=== PATIENT | male | born 1980 | race Caucasian/White ===

== ENCOUNTER 2024-09-27 10:26 | Emergency (ER) | payer OTHER ==
[~2024-09-27] VITALS: Ht 190.5 cm; Wt 122.5 kg
[2024-09-27] MEDS: ASPIRIN 325MG TAB PO ONE (10:55)
[2024-09-27] MEDS ORDERED: NITROGLYCERIN 0.4 MG SL TAB SL PRN (11:00)
[2024-09-27 11:08] LABS: BASOPHILS # (AUTO) 0.01 K/uL (0.00-0.20); BASOPHILS % (AUTO) 0.2 % (0.0-5.0); CREATININE 0.9 mg/dL (0.5-1.3); EOSINOPHILS # (AUTO) 0.04 K/uL (0.00-0.70); EOSINOPHILS % (AUTO) 0.9 % (0.0-8.0); HEMATOCRIT 44.1 % (42-54); IMMATURE GRANULOCYTE ABSOLUTE 0.05 K/uL (0-1); LYMPHOCYTES % (AUTO) 22.7 % (21.0-51.0); MEAN CORPUSCULAR HEMOGLOBIN 31.7 pg (27.0-33.0); MEAN CORPUSCULAR HGB CONC 36.1 g/dL (32.0-36.0); MEAN CORPUSCULAR VOLUME 87.8 fL (79-99); MONOCYTES # (AUTO) 0.3 K/uL (0.1-1.0); MONOCYTES % (AUTO) 7.1 % (3.0-13.0); NEUTROPHILS # (AUTO) 2.9 K/uL (1.8-7.7); NEUTROPHILS % (AUTO) 67.9 % (40.0-77.0); PLATELET COUNT (AUTO) 127 K/uL (130-400); POTASSIUM 3.9 mmol/L (3.5-5.1); RED BLOOD CELL COUNT(AUTO) 5.02 MIL/uL (4.50-6.20); RED CELL DISTRIBUTION WIDTH 12.3 % (11.0-15.5); WHITE BLOOD COUNT (AUTO) 4.2 K/uL (4.8-10.8)
[2024-09-27 11:28] LABS: APPEARANCE,URINE CLEAR (CLEAR); BILIRUBIN,URINE NEGATIVE (NEGATIVE); COLOR,URINE LIGHT-YELLOW (YELLOW); GLUCOSE, URINE (UA) 50 mg/dL (NEGATIVE); KETONES,URINE NEGATIVE (NEGATIVE); LEUKOCYTE ESTERASE ,URINE NEGATIVE Leu/uL (NEGATIVE); NITRATE,URINE NEGATIVE (NEGATIVE); OCCULT BLOOD,URINE NEGATIVE (NEGATIVE); PROTEIN,URINE NEGATIVE (NEGATIVE); UROBILINOGEN,URINE 0.2 mg/dL (0.2-1.0)
[2024-09-27 11:30] LABS: ADD UA MICROSCOPIC YES; BACTERIA,URINE None Seen /HPF (None Seen); RBC,URINE 0-1 /HPF (0-1); WBC,URINE None Seen /HPF (0-1)
[2024-09-27 11:31] LABS: B-TYPE NATRIURETIC PEPTIDE 11 pg/mL (0-100)
--- NOTE | 2024-09-27 11:32 | HMCIMG ---
Exam Type: CHEST 1VW Clinical Information: cp Comparison: None Findings: The lungs are clear of infiltrates. The heart is normal in size. The bony and soft tissue structures of the chest are unremarkable. Impression: Clear lungs.
[2024-09-27 11:35] LABS: AMPHET/METH SCREEN,URINE NEGATIVE (NEGATIVE); BARBITURATE SCREEN, URINE NEGATIVE (NEGATIVE); BENZODIAZEPINES SCREEN,URINE NEGATIVE (NEGATIVE); CANNABINOID SCREEN,URINE NEGATIVE (NEGATIVE); COCAINE SCREEN,URINE NEGATIVE (NEGATIVE); OPIATE SCREEN,URINE NEGATIVE (NEGATIVE); PHENCYCLIDINE SCREEN,URINE NEGATIVE (NEGATIVE)
--- NOTE | 2024-09-27 11:56 | ERN ---
ED Note History of Present Illness Stated Complaint: CHEST PAIN Chief Complaint: Chest Pain Time Seen by MD: 10:32 Time Seen by Midlevel: 10:36 Dictation: 44-year-old male with a history of hypertension and cholesterol coming in with complaints of chest pain, tightness, shortness a breath, then he says he had an episode where he felt numbness to his feet and hands. 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 Allergies: Coded Allergies: No Known Drug Allergies (Unverified Allergy, Unknown, 09/27/24) Past Medical History Past Medical History: High Cholesterol, Hypertension Surgical History: Appendectomy, Other Surgical History Other: HERNIA REPAIR Review of System Dictation Constitutional: Negative for fever,chills, and weight loss Eyes: Negative for injury, pain,redness, and discharge ENT: Negative for injury,pain or swelling Cardiovascular: Positive for chest pain, no palpitations, and no edema Respiratory: Negative for shortness of breath, cough, and wheezing, Abdomen/GI: Negative for abdominal pain, nausea, vomiting, diarrhea, and constipation Back: Negative for injury and pain : Negative for injury, bleeding and discharge MS/Extremity: Negative for injury and deformity Skin: Negative for rash, and discoloration Neuro: Negative for headache, weakness, numbness, tingling, and seizure Psych: Negative for suicide ideation, homicidal ideation, and hallucinations Review of Systems: was completed Initial Vital Sign VS Vital Signs Date Time Temp Pulse Resp B/P (MAP) Pulse Ox O2 Delivery O2 Flow Rate FiO2 09/27/24 10:30 98.4 76 20 156/78 99 Room Air 09/27/24 11:42 0 21 Physical Exam Dictation General: awake, alert, NAD Head/Face: Normocephalic, atraumatic Eyes: PERRL, EOMI, vision at baseline ENT: oral cavity clear, TMs clear, no signs of infection Neck: Trachea midline, supple, no nuchal rigidity Cardiovascular: RRR, normal S1/S2, No MRGs, no JVD Respiratory: CTAB, no respiratory distress, No rales or wheezes Abdomen: Soft, non-tender, non-distended, normal bowel sounds, no guarding or rebound. Skin: Warm, dry, normal turgor, no rash MS/Extremity: Pulses equal, no cyanosis, neurovascular intact, FROM Neuro: COAx4, GCS 15, strength 5/5, CN 2-12 intact, normal cerebellar exam, normal gait, Psych: Normal behavior, mood, and affect normal Results (Laboratory/Radiology) Laboratory/Radiology Laboratory Tests Test 09/27/24 10:53 09/27/24 10:55 09/27/24 12:29 White Blood Count 4.2 K/uL (4.8-10.8) L Red Blood Count 5.02 MIL/uL (4.50-6.20) Hemoglobin 15.9 g/dL (14.0-18.0) Hematocrit 44.1 % (42-54) Mean Corpuscular Volume 87.8 fL (79-99) Mean Corpuscular Hemoglobin 31.7 pg (27.0-33.0) Mean Corpuscular Hemoglobin Concent 36.1 g/dL (32.0-36.0) H Red Cell Distribution Width 12.3 % (11.0-15.5) Platelet Count 127 K/uL (130-400) L Mean Platelet Volume 9.9 fL (7.5-10.5) Immature Granulocyte % (Auto) 1.2 % (0-1) H Neutrophils (%) (Auto) 67.9 % (40.0-77.0) Lymphocytes (%) (Auto) 22.7 % (21.0-51.0) Monocytes (%) (Auto) 7.1 % (3.0-13.0) Eosinophils (%) (Auto) 0.9 % (0.0-8.0) Basophils (%) (Auto) 0.2 % (0.0-5.0) Neutrophils # (Auto) 2.9 K/uL (1.8-7.7) Lymphocytes # (Auto) 1.0 K/uL (1.0-4.8) Monocytes # (Auto) 0.3 K/uL (0.1-1.0) Eosinophils # (Auto) 0.04 K/uL (0.00-0.70) Basophils # (Auto) 0.01 K/uL (0.00-0.20) Absolute Immature Granulocyte (auto 0.05 K/uL (0-1) Nucleated Red Blood Cells 0.0 % (0.0-0.19) Red Blood Cell Morphology See comments Activated Partial Thromboplast Time 28.5 SEC (26.3-35.5) Sodium Level 141 mmol/L (136-145) Potassium Level 3.9 mmol/L (3.5-5.1) Chloride Level 104 mmol/L (101-111) Carbon Dioxide Level 28 mmol/L (21-32) Blood Urea Nitrogen 11 mg/dL (7-18) Creatinine 0.9 mg/dL (0.5-1.3) Glomerular Filtration Rate Calc 109 mL/min (>90) Random Glucose 143 mg/dL (70-105) H Total Calcium 9.2 mg/dL (8.5-10.1) Troponin I High Sensitivity 6 ng/L (4-75) 5 ng/L (4-75) B-Type Natriuretic Peptide 11 pg/mL (0-100) Urine Color LIGHT-YELLOW (YELLOW) Urine Appearance CLEAR (CLEAR) Urine pH 7.0 (5.0-8.0) Urine Specific [place] 1.008 (1.001-1.031) Urine Protein NEGATIVE mg/dL (NEGATIVE) Urine Glucose (UA) 50 mg/dL (NEGATIVE) H Urine Ketones NEGATIVE mg/dL (NEGATIVE) Urine Occult Blood NEGATIVE (NEGATIVE) Urine Nitrate NEGATIVE (NEGATIVE) Urine Bilirubin NEGATIVE mg/dL (NEGATIVE) Urine Urobilinogen 0.2 mg/dL (0.2-1.0) Urine Leukocyte Esterase NEGATIVE Stefanie/uL Urine RBC 0-1 /HPF (0-1) Urine WBC None Seen /HPF (0-1) Urine Bacteria None Seen /HPF (None Seen) Urine Opiates Screen NEGATIVE (NEGATIVE) Urine Barbiturates Screen NEGATIVE (NEGATIVE) Urine Phencyclidine Screen NEGATIVE (NEGATIVE) Urine Amphetamines Screen NEGATIVE (NEGATIVE) Urine Benzodiazepines Screen NEGATIVE (NEGATIVE) Urine Cocaine Screen NEGATIVE (NEGATIVE) Urine Marijuana (THC) Screen NEGATIVE (NEGATIVE) Labs Reviewed?: Yes EKG Comment: EKGs done at 10:38 a.m., in sinus rhythm on the already 69. No STEMI interpreted by ER X-RAY Comment: [place] [id number] [place] [id number] IMAGING REPORT Signed PATIENT: HERMINIA GRANT MR#: [id number] : 1980 SEX: M AGE: 44 LOCATION: ED ORDER 1045 STATUS: REG ER REPORT#: [id number] SERVICE 1043 REASON: cp ORDERING PHYSICIAN: RUKHSANA RAYMOND NP PROCEDURE: CXR1VW - CHEST 1VW Exam Type: CHEST 1VW Clinical Information: cp Comparison: None Findings: The lungs are clear of infiltrates. The heart is normal in size. The bony and soft tissue structures of the chest are unremarkable. Impression: Clear lungs. DICTATED BY: DARA LYN MD DATE: 09/27/24 112 ELECTRONICALLY SIGNED BY: DARA LYN MD DATE: 09/27/24 1132 ED Course ED Course Orders Procedure Category Date Status Time Cbc With Differential LAB 09/27/24 Complete 10:43 B-Type Natriuretic LAB 09/27/24 Complete Peptide 10:43 Chest 1vw RAD 09/27/24 Resulted 10:43 12 Lead Ekg Tracing- EKG 09/27/24 Complete Technical 10:43 Nitroglycerin 0.4mg PHA 09/27/24 Complete Sl Tab (Nitrostat) 11:00 Troponin I High LAB 09/27/24 Complete Sensitivity 10:43 Aspirin 325mg Tab PHA 09/27/24 Complete (Aspirin 325mg Tab) 11:00 Partial LAB 09/27/24 Complete Thromboplastin Time 10:43 Basic Metabolic Panel LAB 09/27/24 Complete 10:43 Urinalysis Profile LAB 09/27/24 Complete 11:14 Drug Screen Urine LAB 09/27/24 Complete 11:14 Troponin I High LAB 09/27/24 Complete Sensitivity 12:22 Current Medications Medications (Trade) Dose Ordered Sig/Ora Route PRN Reason Start Time Stop Time Status Last Admin Dose Admin Aspirin (Aspirin 325mg Tab) 325 mg ONCE ONCE PO 09/27/24 11:00 09/27/24 11:01 DC 09/27/24 10:55 Nitroglycerin (Nitrostat) 0.4 mg Q5M PRN SL CHEST PAIN 09/27/24 11:00 09/27/24 13:24 DC Vital Signs Date Time Temp Pulse Resp B/P (MAP) Pulse Ox O2 Delivery O2 Flow Rate FiO2 09/27/24 13:09 98.2 68 16 130/74 98 Room Air* 0 21 09/27/24 11:42 98.2 67 16 134/78 98 Room Air* 0 21 09/27/24 10:30 98.4 76 20 156/78 99 Room Air HEART Score Response (Comments) Value History: Moderate suspicion (+1) 1 EKG: Normal 0 Age: < 45yrs (0) 0 Risk Factors: 1-2 risk factors (+1) 1 Initial Troponin: Normal limit (0) 0 HEART Score Risk: Low Risk for MACE (1-3) Total 2 Medical Decision Making MDM MDM: 44-year-old male with a history of hypertension and cholesterol coming in with complaints of chest pain, tightness, shortness a breath, then he says he had an episode where he felt numbness to his feet and hands. 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 Blood work unremarkable. Troponin x2 negative. Chest x-ray normal. EKGs normal. Heart score of two, low risk. Patient's chest pain has resolved. Patient states he isn't from here he isn't [place] and sees a [facility] and PCP from there. Patient states he would rather be discharged and follow up outpatient with the his own PCP and [employer] in [place] and they are traveling today to [place]. Discussed with the patient he develops any worsening pain to go to the nearest emergency room. Patient verbalized understanding, answered all questions. Differential diagnosis: ACS, anxiety, costochondritis Rationale: Tests considered and ordered secondary to shared decision making include: Previous outside records reviewed: Old ER visits. Risk of complication and/or morbidity or mortality of patient management: None Medications-Per medication reconciliation Need for hospitalization: Patient does not meet criteria for hospitalization. Need for emergency major/minor surgery: No There are no social concerns with this patient. Prescription drug management Prescriptions will include symptomatic care Patient's prior external medical records from other ER visits were reviewed by me as indicated. Prior testing and results from previous visits were reviewed. Prior tests were taken into account with medical decision making and resource utilization, independent historian/historians were used to obtain complete medical history. I independently interpreted the test that were performed, results were reviewed by me and considered findings on radiology if ordered. Medical management and examination interpretation discussions were had by me with other qualified healthcare professionals as indicated for the patient's care. DX & DISP Disposition: Discharge Departure Impression: Primary Impression: Chest pain Condition: Stable Additional Instructions: Follow up with your PCP and [employer] when you get in [place]. If you develop any chest pain again please stop by urinary wrist emergency room. Referrals: SELF,REFERRAL (PCP) Time of Disposition: 13:00 I have reviewed the case, and I agree with, Diagnosis and Plan I performed the substantive portion of the visit. I have reviewed and personally made and approve the management plan that is documented in the notes by myself or the YASH. I acknowledge full responsibility for the patient's management plan. RUKHSANA RAYMOND NP September 27, 2024 11:56 ANALI BAEZ MD September 27, 2024 18:24
[2024-09-27 13:09] VITALS: BP 130/74; PULSE 68; RESP 16; TEMP 98.3; O2SAT 98
--- NOTE | 2024-09-27 13:54 | EKG ---
[facility] Test Date: 2024-09-27 Test Time: 10:38:59 Pat Name: HERMINIA GRANT Department: ED Room: Gender: Psychiatric Orderly: [facility] : 1980 Requested By: RUKHSANA RAYMOND Order Number: [id number] Reading MD: Jayden Agudelo Measurements Intervals [place] Rate: 69 P: 39 [place]: 178 QRS: -17 QRSD: 97 T: 0 QT: 399 QTc: 427 Interpretive Statements Sinus rhythm No previous ECG available for comparison Electronically Signed On 09-28-2024 17:31:18 CDT by Jayden Agudelo Please click the below link to view image of tracing.
== END 2024-09-27 13:24 | disposition home or self-care (01) ==
LOC: EDH 10:26
DX: R07.89 Other chest pain (principal); E78.00 Pure hypercholesterolemia, unspecified; I10 Essential (primary) hypertension; Z90.49 Acquired absence of other specified parts of digestive tract; Z98.890 Other specified postprocedural states
CPT/HCPCS: 36415; 71045; 80048; 80305; 81001; 83880; 84484; 85025; 85730; 93005; 99285